=== PATIENT | male | born 1970 | race Two or more races ===

== ENCOUNTER 2022-12-05 04:58 | Day surgery (SDC) | payer OTHER ==
[2022-12-01 11:10] VITALS: BMI 25.4
[2022-12-05 12:02] VITALS: BP 121/83; PULSE 80; RESP 21; TEMP 97.3
== END 2022-12-05 12:00 | disposition home or self-care (01) ==
LOC: JASU-ENDO 04:58
PROVIDERS: ATTEND Student in an Organized Health Care Education/Training Program
PROC: 0DBN8ZX Excision of Sigmoid Colon, Via Natural or Artificial Opening Endoscopic, Diagnostic (ICD-10-PCS; 2022-12-05)
PROC: 0DBH8ZX Excision of Cecum, Via Natural or Artificial Opening Endoscopic, Diagnostic (ICD-10-PCS; principal; 2022-12-05 10:30)
DX: K63.5 Polyp of colon (principal)
CPT/HCPCS: 88305-TC